=== PATIENT | female | born 1965 | race Caucasian/White ===

== ENCOUNTER 2018-06-02 19:32 | Emergency (ER) | END 2018-06-02 22:17 | disposition home or self-care (01) ==

== ENCOUNTER 2018-06-22 03:57 | Emergency (ER) | END 2018-06-22 08:30 | disposition home or self-care (01) ==

== ENCOUNTER 2018-09-21 06:27 | Day surgery (SDC) | END 2018-09-21 12:08 | disposition home or self-care (01) ==

== ENCOUNTER 2018-09-25 13:08 | Emergency (ER) | END 2018-09-25 16:10 | disposition home or self-care (01) ==